=== PATIENT | male | born 1960 | race African-American/Black ===

== ENCOUNTER 2017-03-29 18:47 | Inpatient (IN) | payer MEDICAID, OTHER ==
[~2017-03-29] VITALS: Ht 172.7 cm; Wt 59.9 kg
[2017-03-29 19:56] LABS: MEAN CORPUSCULAR HEMOGLOBIN 13.9 pg (28.0-32.0); MEAN CORPUSCULAR VOLUME 50.7 fL (80.0-94.0); MEAN PLATELET VOLUME 8.2 fl (7.4-10.4); PLATELET 360 x1000/uL (130-400); RED BLOOD CELL COUNT 3.41 mill/uL (4.7-6.1); RED CELL DISTRIBUTION WIDTH 20.7 % (11.6-14.6)
[2017-03-29 20:00] LABS: CHLORIDE 102 mEq/L (98-107)
[2017-03-29 20:02] LABS: HEMATOCRIT. 17.3 % (42.0-52.0); HEMOGLOBIN. 4.7 g/dL (14.0-18.0); INR 1.1; PROTHROMBIN TIME 11.4 sec (9.4-11.6)
[2017-03-29 20:07] LABS: CARBON DIOXIDE 25 mEq/L (21-32)
[2017-03-29 20:27] LABS: PLATELET ESTIMATE NORMAL
[2017-03-30] VITALS (15 sets, daily range): BP systolic 95–120; BP diastolic 51–76
[2017-03-30] MEDS ORDERED: MORPHINE SULFATE 4 MG/ML CPJ (NOT FOR IM USE) IV ONE (00:15)
[2017-03-30] MEDS ORDERED: ONDANSETRON HCL 4MG/2ML VIAL IV PRN (03:15)
[2017-03-30] MEDS ORDERED: OMEPRAZOLE 20MG CAPSULE EXTENDED RELEASE PO SCH (07:20)
[2017-03-30] MEDS: PANTOPRAZOLE SODIUM 40 MG/VIAL IV SCH (08:10)
[2017-03-30] MEDS: MORPHINE SULFATE 4 MG/ML CPJ (NOT FOR IM USE) IV PRN ×3 (10:29→23:14)
[2017-03-30 18:45] LABS: HEMATOCRIT 30.9 % (42.0-52.0); HEMOGLOBIN 9.7 g/dL (14.0-18.0)
[2017-03-30 22:13] LABS: HEMATOCRIT. 29.3 % (42.0-52.0); HEMOGLOBIN. 9.1 g/dL (14.0-18.0); MEAN CORPUSCULAR HEMOGLOBIN 19.6 pg (28.0-32.0); MEAN CORPUSCULAR VOLUME 63.2 fL (80.0-94.0); MEAN PLATELET VOLUME 8.6 fl (7.4-10.4); PLATELET 371 x1000/uL (130-400); RED BLOOD CELL COUNT 4.64 mill/uL (4.7-6.1); RED CELL DISTRIBUTION WIDTH 35.5 % (11.6-14.6)
[2017-03-30 22:29] LABS: TOTAL IRON BINDING CAPACITY 320 ug/dL (250-450)
[2017-03-30 22:59] LABS: FERRITIN 10 ng/mL (22-322)
[2017-03-30 23:01] LABS: VITAMIN B12 SERUM 467 pg/mL (211-911)
[2017-03-30 23:19] LABS: PLATELET ESTIMATE NORMAL
[2017-03-30 23:59] LABS: HEMATOCRIT 28.3 % (42.0-52.0); HEMOGLOBIN 8.8 g/dL (14.0-18.0)
[2017-03-31] VITALS (7 sets, daily range): BP systolic 108–135; BP diastolic 51–87
[2017-03-31] MEDS: MORPHINE SULFATE 4 MG/ML CPJ (NOT FOR IM USE) IV PRN ×3 (04:26→14:45)
[2017-03-31 07:06] LABS: HEMATOCRIT 29.8 % (42.0-52.0); HEMOGLOBIN 9.2 g/dL (14.0-18.0)
[2017-03-31] MEDS: PANTOPRAZOLE SODIUM 40 MG/VIAL IV SCH (08:41)
== END 2017-03-31 20:00 | disposition home or self-care (01) | DRG 663 ==
LOC: ER 21:41 → 6EST 23:08 → ENRESERV 23:17
PROVIDERS: ADMIT Internal Medicine; ATTEND Internal Medicine
PROC: 30233N1 Transfusion of Nonautologous Red Blood Cells into Peripheral Vein, Percutaneous Approach (ICD-10-PCS; principal; 2017-03-29)
DX: D50.9 Iron deficiency anemia, unspecified (principal); E43 Unspecified severe protein-calorie malnutrition; L89.159 Pressure ulcer of sacral region, unspecified stage; N39.0 Urinary tract infection, site not specified; F14.10 Cocaine abuse, uncomplicated; F17.210 Nicotine dependence, cigarettes, uncomplicated; J44.9 Chronic obstructive pulmonary disease, unspecified; L98.429 Non-pressure chronic ulcer of back with unspecified severity; F11.10 Opioid abuse, uncomplicated; Z68.20 Body mass index [BMI] 20.0-20.9, adult; L98.421 Non-pressure chronic ulcer of back limited to breakdown of skin
CPT/HCPCS: 36415; 80053; 82270; 82607; 82728; 83540; 83550; 84134; 85014; 85018; 85025; 85610; 86850; 86900; 86920; 93005; 96374; 99285; 99406; C9113; J2270; P9016